=== PATIENT | female | born 1955 | race African-American/Black ===

== ENCOUNTER 2024-04-28 10:35 | Emergency (ER) | payer MEDICAID, OTHER ==
[~2024-04-28] VITALS: Ht 154.9 cm; Wt 84.5 kg
[~2024-04-28 10:35] MED LIST: AML5T PO; ASPI1TAB20 PO; GLIP5TAB21 PO; LISI2.5T47 PO; METF500T PO
--- NOTE | 2024-04-28 11:16 | DVH ---
CHEST RADIOGRAPH Indication: chest pain Technique: Single frontal view of the chest was obtained COMPARISON: None FINDINGS: Lines and Tubes: None Lungs: Clear Pleura: No effusion. No pneumothorax. Cardiomediastinal contours: Unremarkable Bones: Unremarkable IMPRESSION: No acute disease.
[2024-04-28 11:29] LABS: Alanine Aminotransferase 17 U/L (7-40); Albumin 3.8 g/dL (3.2-4.8); Alkaline Phosphatase 100 U/L (46-116); Anion Gap 9 (5-15); Aspartate Aminotransferase 16 U/L (13-40); BUN/Creatinine Ratio 5.8 (10.0-20.0); Basophils # (auto) 0.1 10 ^3/uL (0-0.2); Basophils % (auto) 0.8 % (0.0-2.0); Bilirubin, Total 0.4 mg/dL (0.2-1.0); Blood Urea Nitrogen 14 mg/dL (9-23); Calcium 10.2 mg/dL (8.7-10.4); Carbon Dioxide 26 mmol/L (20-31); Eosinophils # (auto) 0.1 10 ^3/uL (0-0.8); Eosinophils % (auto) 1.5 % (0.0-7.0); Hematocrit 40.4 % (36.0-46.0); Hemoglobin 13.7 g/dL (12.2-16.2); Lymphocytes # (auto) 1.9 10 ^3/uL (0.4-5.4); Lymphocytes % (auto) 28.9 % (10.0-50.0); Magnesium 2.1 mg/dL (1.6-2.6); Mean Corpuscular Hemoglobin 29.6 pg (28.0-32.0); Mean Corpuscular Hgb Conc. 33.9 g/dL (32.0-36.0); Mean Corpuscular Volume 87.3 fL (80.0-100.0); Monocytes # (auto) 0.4 10 ^3/uL (0-1.3); Monocytes % (auto) 6.6 % (0.0-12.0); Neutrophils # (auto) 4.1 10 ^3/uL (1.6-8.6); Neutrophils % (auto) 62.2 % (37.0-80.0); Platelet Count (auto) 229 10^3/uL (140-450); Potassium 3.8 mmol/L (3.5-5.1); Red Blood Cells 4.63 10^6/uL (4.0-5.20); Red Cell Distribution Width 14.7 % (11.8-14.3); Sodium 143 mmol/L (136-145); Total Protein 6.6 g/dL (5.7-8.2); White Blood Cell 6.5 10^3/uL (4.4-10.8)
[2024-04-28 11:32] LABS: Chloride 108 mmol/L (98-107); Glucose 151 mg/dL (74-106)
[2024-04-28] MEDS: ASPirin 81 mg TAB PO ONE (11:49)
[2024-04-28 11:50] VITALS: RESP 18; O2SAT 98
[2024-04-28 12:00] VITALS: BP 198/73; RESP 18; TEMP 98.5; O2SAT 96
[2024-04-28 12:24] VITALS: PULSE 70
--- NOTE | 2024-04-28 12:24 | ED.PDOC ---
History of Present Illness HPI Comments 68 y/o F presents with daughter for c/o chest and right arm pain, today. Per daughter, patient was sent to the ED by her PCP during routine in-office check up, today, when she complained of intermittent, sternal chest pain that radiates to her right arm for 1x month. Patient is stated to have had a EKG and blood pressure checked at said office then and was noted to have been hypertensive. Patient describes pain as sharp in quality and rates it a 8/10, with some mild relief when takes a "bath." Daughter reports on patient not taking any her medications or eating, this morning. Patient has no reported shortness of breath, dizziness, palpitations, or other associated symptoms or modifiers at this time. Chief Complaint: Chest Pain Time Seen by MD: 11:25 Primary Care Provider: TIMOTHY Reviewed Notes: Nurses Notes, Medications, Allergies Allergies: Coded Allergies: NO KNOWN ALLERGIES (Unverified , 05/09/13) Home Meds Reported Medications Amlodipine Besylate (NORVASC TABLET) 5 Mg Tb, 1 TAB PO DAILY, #30 TAB 5 Refills 05/19/15 Lisinopril (Lisinopril) 2.5 Mg Tab, 1 TAB PO DAILY, #30 TAB 5 Refills 05/19/15 Metformin Hydrochloride (Glucophage) 500 Mg Tab, 1 TAB PO BID, #180 TAB 1 Refill 05/19/15 Aspirin (Aspir-81) 81 Mg Tab, 1 TAB PO DAILY, #30 TAB 5 Refills 05/19/15 Glipizide (Glipizide) 5 Mg Tab, 1 TAB PO BID, #60 TAB 3 Refills 05/19/15 Information Source: Patient, Relative (Child) Mode of Arrival: Ambulatory Severity: Moderate Timing: Months Duration: Intermittent Prehospital treatment: None Associated signs and symptoms Accelerated hypertension, ACS, [place] Past Medical History PAST MEDICAL HISTORY: CKF, Dementia, DM, High Lipids, HTN, Thyroid Past Medical History (Other): current hernia, previous back fracture with chronic pain syndrome s/p, Surgical History: Cholecystectomy Surgical History (Other): neck Sx, cataract Sx 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 NEWSP[employer]ER 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 MANAGER History Family History Family History: No family hx of DM, No family hx of HTN Social History Smoker: Non-Smoker Alcohol: Denies ETOH Use Drugs: Denies Drug Use Lives In: Home Constitutional: denies: chills, diaphoresis, fatigue, fever, malaise, sweats, weakness, others EENTM: denies: blurred vision, double vision, ear bleeding, ear discharge, ear drainage, ear pain, ear ringing, eye pain, eye redness, hearing loss, mouth pain, mouth swelling, nasal discharge, nose bleeding, nose congestion, nose pain, photophobia, tearing, throat pain, throat swelling, voice changes, others Respiratory: denies: cough, hemoptysis, orthopnea, SOB at rest, shortness of breath, SOB with excertion, stridor, wheezing, others Cardiovascular: reports: chest pain; denies: dizzy spells, diaphoresis, Dyspnea on exertion, edema, irregular heart beat, left arm pain, lightheadedness, palpitations, PND, syncope, others Gastrointestinal: denies: abdomen distended, abdominal pain, blood streaked bowels, constipated, diarrhea, dysphagia, difficulty swallowing, hematemesis, melena, nausea, poor appetite, poor fluid intake, rectal bleeding, rectal pain, vomiting, others Genitourinary: denies: abnormal vagina bleeding, burning, dyspareunia, dysuria, flank pain, frequency, hematuria, incontinence, pain, , vagina discharge, urgency, others Neurological: denies: dizziness, fainting, headache, left sided numbness, left sided weakness, numbness, paresthesia, pre-existing deficit, right sided numbness, right sided weakness, seizure, speech problems, tingling, tremors, weakness, others Musculoskeletal: reports: others (right arm pain ); denies: back pain, gout, joint pain, joint swelling, muscle pain, muscle stiffness, neck pain Integumetry: denies: bruises, change in color, change in hair/nails, dryness, laceration, lesions, lumps, rash, wounds, others Allergic/Immunocompromised: denies: Difficulty Healing, Frequent Infections, Hives, Itching, others Hematologic/Lymphatic: denies: anemia, blood clots, easy bleeding, easy bruising, swollen glands, others Endocrine: denies: excessive hunger, excessive sweating, excessive thirst, excessive urination, flushing, intolerance to cold, intolerance to heat, unexplained weight gain, unexplained weight loss, others Psychiatric: denies: anxiety, bipolar disorder, depression, hopeless, panic dis order, schizophrenia, sleepless, suicidal, others All Other Systems: Reviewed and Negative Physical Exam General Appearance: Moderate Distress HEENT: Normal ENT Inspection, Pharynx Normal, TMs Normal Neck: Full Range of Motion, Non-Tender, Normal, Normal Inspection Respiratory: Chest Non-Tender, Lungs Clear, No Accessory Muscle Use, No Respiratory Distress, Normal Breath Sounds Cardiovascular: No Edema, No JVD, No Murmur, No Gallop, Normal Peripheral Pulses, Regular Rate/Rhythm Breast Exam: Deferred Gastrointestinal: No Organomegaly, Non Tender, No Pulsatile Mass, Normal Bowel Sounds, Soft Genitalia: Deferred Pelvic: Deferred Rectal: Deferred Extremities: No calf tenderness, Normal capillary refill, Normal inspection, Normal range of motion, Non-tender, No pedal edema Musculoskeletal : Apperance: Normal Neurologic: Alert, oriental rug stretcher II-XII nml as Tested, Motor Weakness, Normal Affect, Normal Mood, No Sensory Deficits Cerebellar Function: Normal Reflexes: Normal Skin: Dry, Normal Color, Warm Lymphatic: No Adenopathy Was a procedure done? Was a procedure done?: No EKG EKG #1: Pulse Rate (adult): 66 [place]: Normal Cardiac Rhythm: NSR Block: None Hypertrophy: None ST: Normal EKG #2: Pulse Rate (adult): 70 [place]: Normal Cardiac Rhythm: NSR Block: None Hypertrophy: None ST: Normal Differential Dx Considerations may include: TX, ACS, PE, PNA, angina, costochondritis, pericarditis X-Ray, Labs, Meds, VS Vital Signs Date Time Temp Pulse Resp B/P (MAP) Pulse Ox O2 Delivery O2 Flow Rate FiO2 04/28/24 12:24 70 04/28/24 12:00 98.5 65 18 198/73 (114) 96 98.5 04/28/24 11:50 18 98 Room Air* 0 21 04/28/24 11:41 70 04/28/24 10:44 66 04/28/24 10:40 97.5 58 16 137/95 (109) 98 Lab Test 04/28/24 13:01 04/28/24 11:48 04/28/24 10:48 Range/Units Troponin I High Sensitivity 9 10 </=34 ng/L Urine Color Yellow Yellow Urine Clarity Turbid H Clear Urine pH 6.5 5.0-9.0 Urine Specific [place] 1.032 1.001-1.035 Urine Protein 3+ H Negative Urine Ketones 1+ H Negative Urine Blood 2+ H Negative /uL Urine Nitrite Negative Negative Urine Bilirubin Negative Negative Urine Urobilinogen Normal Negative mg/dL Urine Leukocyte Esterase 2+ Negative /uL Urine RBC 9 0 - 4 /hpf Urine WBC 195 0 - 5 /hpf Urine Squamous Epithelial Cells Mod <5 /hpf Urine Bacteria Few H None Seen /hpf Urine Mucus Few None Seen Urine Glucose 2+ H Normal mg/dL White Blood Count 6.5 4.4-10.8 10^3/uL Red Blood Count 4.63 4.0-5.20 10^6/uL Hemoglobin 13.7 12.2-16.2 g/dL Hematocrit 40.4 36.0-46.0 % Mean Corpuscular Volume 87.3 80.0-100.0 fL Mean Corpuscular Hemoglobin 29.6 28.0-32.0 pg Mean Corpuscular Hemoglobin Concent 33.9 32.0-36.0 g/dL Red Cell Distribution Width 14.7 H 11.8-14.3 % Platelet Count 229 140-450 10^3/uL Mean Platelet Volume 9.8 6.9-10.8 fL Neutrophils (%) (Auto) 62.2 37.0-80.0 % Lymphocytes (%) (Auto) 28.9 10.0-50.0 % Monocytes (%) (Auto) 6.6 0.0-12.0 % Eosinophils (%) (Auto) 1.5 0.0-7.0 % Basophils (%) (Auto) 0.8 0.0-2.0 % Neutrophils # (Auto) 4.1 1.6-8.6 10 ^3/uL Lymphocytes # (Auto) 1.9 0.4-5.4 10 ^3/uL Monocytes # (Auto) 0.4 0-1.3 10 ^3/uL Eosinophils # (Auto) 0.1 0-0.8 10 ^3/uL Basophils # (Auto) 0.1 0-0.2 10 ^3/uL Nucleated Red Blood Cells 0.0 % Sodium Level 143 136-145 mmol/L Potassium Level 3.8 3.5-5.1 mmol/L Chloride Level 108 H 98-107 mmol/L Carbon Dioxide Level 26 20-31 mmol/L Anion Gap 9 5-15 Blood Urea Nitrogen 14 9-23 mg/dL Creatinine 2.40 H 0.550-1.02 mg/dL Glomerular Filtration Rate Calc 21 >90 mL/min BUN/Creatinine Ratio 5.8 L 10.0-20.0 Serum Glucose 151 H 74-106 mg/dL Calcium Level 10.2 8.7-10.4 mg/dL Magnesium Level 2.1 1.6-2.6 mg/dL Total Bilirubin 0.4 0.2-1.0 mg/dL Aspartate Amino Transferase (AST) 16 13-40 U/L Alanine Aminotransferase (ALT) 17 7-40 U/L Alkaline Phosphatase 100 46-116 U/L Total Protein 6.6 5.7-8.2 g/dL Albumin 3.8 3.2-4.8 g/dL Current Medications Medications (Trade) Dose Ordered Sig/Khris Route Start Time Stop Time Status Last Admin Aspirin 162 mg ONCE ONCE PO 04/28/24 11:45 04/28/24 11:46 DC 04/28/24 11:49 PROCEDURE(s): CXRP - CHEST PORTABLE IMPRESSION: No acute disease. The patient was given aspirin 162 mg by mouth The CBC and chemistry panel are within normal limits except for a creatinine of 2.40 The urine test is positive for UTI The patient's troponin level is negative A repeat troponin level was negative The patient was blood pressure was still elevated. We attempted to admit the patient but it seems that the patient has decided to leave AMA. A cardiology consult was going to be obtained but the patient has now left the department's Images Reviewed?: Images reviewed and evaluated by me Time of 1ST Reevaluation: 11:55 Reevaluation 1ST: Unchanged Patient Education/Counseling: Diagnosis, Treatment, Prognosis Family Education/Counseling: Diagnosis, Treatment, Prognosis Departure 1 Departure Time of Disposition: 14:12 Impression: Primary Impression: Accelerated hypertension Additional Impressions: Morbid obesity Acute chest pain Disposition: 09 ADMITTED INPATIENT Admit to: Tele Condition: Fair Critical Care Note Critical Care Time?: Yes (35 min-critical care time only) Stability Stability form required: Yes Unstable for transfer: Telemetry monitoring (Telemetry monitoring required), ED Physician Assesment (Clinical assesment) Heart Score Heart Score: Heart Score Response (Comments) Value History Moderate Suspicious 1 EKG Normal 0 Age >65 2 Risk Factors >3 or Hx ASHD 2 Troponin Normal limit 0 Total 5 I personally scribed for GUME WADDELL MD ([email or web address]) on 04/28/24 at 12:24. Electronically submitted by Fermin Mitchell [email or web address]). GUME WADDELL MD Apr 28, 2024 12:24
[2024-04-28 13:52] LABS: Urine Bacteria FEW /hpf (None Seen); Urine Blood 2+ /uL (Negative); Urine Clarity Turbid (Clear); Urine Color Yellow (Yellow); Urine Mucus FEW (None Seen); Urine Protein, UAD 3+ (Negative); Urine Specific Gravity 1.032 (1.001-1.035); Urine Squamous Epithelial Cell MOD /hpf (<5); Urine Urobilinogen Normal (Negative); Urine WBC 195 /hpf (0 - 5); Urine pH 6.5 (5.0-9.0)
--- NOTE | 2024-04-29 10:52 | ECG ---
[facility] Test Date: 2024-04-28 Test Time: 11:41:18 Pat Name: BRIAN JEAN BAPTISTE Department: ER Room: Gender: F Science Consultant: IC : 1955 Requested By: GUME WADDELL Order Number: [id number] Reading MD: Vinh Ramey Measurements Intervals Ernest Rate: 70 P: 25 MS: 176 QRS: 7 QRSD: 88 T: -1 QT: 402 QTc: 434 Interpretive Statements Sinus rhythm Left ventricular hypertrophy Anterior Q waves, possibly due to LVH Electronically Signed On 04-29-2024 13:09:36 PST by Vinh Ramey Please click the below link to view image of tracing.
--- NOTE | 2024-04-29 11:25 | ECG ---
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
== END 2024-04-28 13:51 | disposition left against medical advice (07) ==
LOC: ER 10:35
DX: E66.01 Morbid (severe) obesity due to excess calories (principal); R07.89 Other chest pain; E03.9 Hypothyroidism, unspecified; E78.5 Hyperlipidemia, unspecified; E11.9 Type 2 diabetes mellitus without complications; I12.9 Hypertensive chronic kidney disease with stage 1 through stage 4 chronic kidney disease, or unspecified chronic kidney disease; E11.22 Type 2 diabetes mellitus with diabetic chronic kidney disease; N18.9 Chronic kidney disease, unspecified; Z90.49 Acquired absence of other specified parts of digestive tract; Z98.890 Other specified postprocedural states; Z79.899 Other long term (current) drug therapy; Z79.84 Long term (current) use of oral hypoglycemic drugs
CPT/HCPCS: 36415; 71045; 80053; 81001; 83735; 84484; 85025; 93005